=== PATIENT | male | born 1965 | race African-American/Black ===

== ENCOUNTER 2019-12-15 10:47 | Emergency (ER) | payer BC, SELFPAY ==
[2019-12-15 11:05] VITALS: BP 150/94; PULSE 57; RESP 16; TEMP 36.3; O2SAT 98
--- NOTE | 2019-12-15 11:23 | ED.GENADULT ---
HPI - General Adult General Chief complaint: Upper Respiratory Infection Stated complaint: Cold/Flu symptoms History of Present Illness HPI narrative: Patient is a 54-year-old -French male who presents to the urgent care via POV for an evaluation of for sinus problems that began approximately 5 days ago. Additionally, he reports nasal congestion, sinus congestion, sinus pressure, sore throat, fatigue, and swollen lymph nodes. No relief with Claritin. Salt water gargles, hot tea, and hot showers improves symptoms. Nothing worsens symptoms. Patient reports calling PCP who encouraged him to seek strep and flu testing at an urgent care. Denies fever, chills, sweats, malaise, change in appetite, poor p.o. intake, recent weight loss, severe persistent headache, LOC, dizziness, vision changes, ear pain/drainage, nasal drainage, drooling, difficulty swallowing, hoarseness, abdominal pain, nausea, vomiting, diarrhea, cough, shortness of breath, chest pain, heart palpitations/murmurs. Related Data Home Medications Medication Instructions Recorded Confirmed amlodipine-benazepril 1 cap PO DAILY 12/15/19 12/15/19 metoprolol succinate 75 mg PO DAILY 12/15/19 12/15/19 rivaroxaban [Xarelto] 20 mg PO DAILY 12/15/19 12/15/19 Allergies Allergy/AdvReac Type Severity Reaction Status Date / Time No Known Allergies Allergy Verified 12/15/19 11:19 Review of Systems Review of Systems: Narrative: All other systems reviewed and are negative PMFSH Social History Social History Gender identity (if verbalized by the patient): Male Comments I have reviewed and agree with the patient's past medical, surgical, social, and family hx as documented by the RN. There is no relevant family history pertinent to the presenting complaint. Exam Narrative: Exam Narrative: GENERAL: Well-appearing, well-nourished, and in no acute distress. HEAD: Normocephalic, atraumatic. No sinus tenderness or facial swelling appreciated. EYES: PERRLA and EOMI. No evidence of erythema, swelling, or drainage. ENT: Bilateral external ears and ear canals normal. Bilateral TMs are normal.No TM perforation. Nares clear, no rhinorrhea or epistaxis. Bilateral turbinates without erythema/ swelling. Mucous membranes moist and pink. Uvula is midline without erythema and swelling. No evidence of petechial rash, cobblestoning, lesions, ulcers, erythema, swelling, exudates, peritonsillar abscess, tenting, or drooling. Breath odor and voice normal. NECK: Supple. No Lymphadenopathy or nuchal rigidity appreciated. CHEST: Bilateral lung alvarez are clear to auscultation. No respiratory distress. No evidence of cough or pleuritic cp upon examination. HEART: Regular rate and rhythm. No murmur, gallop, or rub heard. EXTREMITIES: Normal range of motion. No edema. SKIN: Warm, dry, no rash. NEURO: No focal deficits. Alert and oriented x3. Course Vital Signs Vital signs: Vital Signs Temperature 97.4 F L 12/15/19 11:05 Pulse Rate 57 L 12/15/19 11:05 Respiratory Rate 16 12/15/19 11:05 Blood Pressure 150/94 H 12/15/19 11:05 Pulse Oximetry 98 12/15/19 11:05 Temperature 97.4 F L 12/15/19 11:05 Pulse Rate 57 L 12/15/19 11:05 Respiratory Rate 16 12/15/19 11:05 Blood Pressure 150/94 H 12/15/19 11:05 Pulse Oximetry 98 12/15/19 11:05 Medical Decision Making Medical Records Medical records reviewed: Yes I reviewed the patient's medical records. Vital Signs Vital Signs: Vital Signs Temperature 97.4 F L 12/15/19 11:05 Pulse Rate 57 L 12/15/19 11:05 Respiratory Rate 16 12/15/19 11:05 Blood Pressure 150/94 H 12/15/19 11:05 Pulse Oximetry 98 12/15/19 11:05 Temperature 97.4 F L 12/15/19 11:05 Pulse Rate 57 L 12/15/19 11:05 Respiratory Rate 16 12/15/19 11:05 Blood Pressure 150/94 H 12/15/19 11:05 Pulse Oximetry 98 12/15/19 11:05 Due to an elevated blood pressure, I had a detailed discussion with the patient and/or guar
== END 2019-12-15 11:45 | disposition home or self-care (01) ==
PROVIDERS: Emergency Provider Nurse Practitioner Family
DX: J01.90 Acute sinusitis, unspecified (principal)
CPT/HCPCS: 87081; 87804; 87880; 99203; G0463

== ENCOUNTER 2021-09-20 16:24 | Emergency (ER) | payer SELFPAY ==
--- NOTE | ~2021-09-20 | XR_ITS ---
EXAMINATION: XR chest 2V DATE: 09/20/2021 17:12 INDICATION: Cough, shortness of breath and fever. TECHNIQUE: frontal and lateral views of the chest were obtained. COMPARISON: Chest radiograph dated 06/15/2015 FINDINGS: The lungs remain clear with no focal airspace opacities, pulmonary edema, pleural effusion or pneumot horax. The cardiomediastinal silhouette is normal. Mild thoracic spondylosis. IMPRESSION: 1. No acute cardiopulmonary disease. Reviewed, dictated and finalized at location H. [employer]
[2021-09-20 16:30] VITALS: BP 145/79; PULSE 85; RESP 18; TEMP 39.7; O2SAT 99
--- NOTE | 2021-09-20 16:58 | ED.URI ---
HPI - URI/Sore Throat General Chief Complaint: Upper Respiratory Infection Stated Complaint: ortega/cough Time Seen by Provider: 09/20/21 16:50 Source: patient and RN notes reviewed Mode of arrival: ambulatory Limitations: no limitations History of Present Illness HPI Narrative: Patient presents today complaining of a 2-day history of cough with shortness of breath, headache, body aches with back pain, congestion and rhinorrhea. He developed a fever today up to 100.2 at home. Temperature upon arrival today at [facility] was 103.4. History of asthma. He has been taking Tylenol and using albuterol inhaler at home with some relief. Currently rates his body aches and headache 05/07. MD elicited complaint: fever and cough Related Data Home Medications Medication Instructions Recorded Confirmed amlodipine-benazepril 1 cap PO DAILY 12/15/19 09/20/21 metoprolol succinate 75 mg PO DAILY 12/15/19 09/20/21 rivaroxaban [Xarelto] 20 mg PO DAILY 12/15/19 09/20/21 Allergies Allergy/AdvReac Type Severity Reaction Status Date / Time No Known Allergies Allergy Verified 09/20/21 16:52 Review of Systems Review of Systems: CONSTITUTIONAL: Denies chills, or sweats.+ Body aches, fever EYES: Denies visual changes, redness, or discharge. ENT: Denies sore throat, or otalgia.+ Congestion, rhinorrhea CARDIOVASCULAR: Denies chest pain, palpitations, or edema. RESPIRATORY: + Cough, breath GASTROINTESTINAL: Denies abdominal pain, nausea, vomiting, or diarrhea. GENITOURINARY: Denies dysuria or hematuria. SKIN: Denies rash, itching, or wounds. MUSCULOSKELETAL: Denies joint pain, or myalgia.+ Back pain NEUROLOGIC: Denies numbness, tingling, or weakness.+ Headache PSYCH: Denies depression or anxiety. PMFSH Social History Social History Gender identity (if verbalized by the patient): Male Comments At time of signature, I have reviewed and agree with nursing past medical, surgical, social and family history unless otherwise noted. Please see nursing chart for further information. There is no relevant family history pertinent to the presenting complaint Exam Narrative: GENERAL: Mildly ill-appearing, well-nourished, and in no acute distress. HEAD: Normocephalic, atraumatic. EYES: EOMI. No redness or drainage. Conjunctivae normal. ENT: Mucous membranes pink and moist. Nares clear. No rhinorrhea. TMs normal bilaterally. Throat normal. Uvula midline. NECK: Normal AROM. Supple. No lymphadenopathy. CHEST: No respiratory distress. Crackles in the left lower lobe, otherwise clear. HEART: Regular rate and rhythm. No murmur appreciated. Normal peripheral pulses. EXTREMITIES: Normal range of motion. No edema. SKIN: Warm, dry, no rash. Capillary refill normal. Normal skin turgor. NEURO: No focal deficits. Alert and oriented x3. Gait steady. PSYCH: Normal affect. No signs of depression or anxiety. Course Vital Signs Vital signs: Vital Signs Temperature 103.4 F H 09/20/21 16:30 Pulse Rate 85 09/20/21 16:30 Respiratory Rate 18 09/20/21 16:30 Blood Pressure 145/79 H 09/20/21 16:30 Pulse Oximetry 99 09/20/21 16:30 Temperature 103.4 F H 09/20/21 16:30 Pulse Rate 85 09/20/21 16:30 Respiratory Rate 18 09/20/21 16:30 Blood Pressure 145/79 H 09/20/21 16:30 Pulse Oximetry 99 09/20/21 16:30 Reviewed. Pt has been instructed to follow up with his PCP regarding his elevated blood pressure today. MDM - URI/Sore Throat Differential Diagnosis Differential diagnosis: Likely upper respiratory infection, viral infection, influenza and other (Asthma exacerbation, COVID-19) Lab Data Attestation: I reviewed the patient's lab results. Lab results narrative: Rapid COVID-19 test negative Labs: Influenza A Screen Negative Reference Range: Negative Influenza B Screen Negative
[2021-09-20] MEDS: ACETAMINOPHEN 500 MG TABLET 1000 MG PO (17:00)
== END 2021-09-20 17:35 | disposition home or self-care (01) ==
PROVIDERS: Emergency Provider Nurse Practitioner
DX: B34.9 Viral infection, unspecified (principal); Z20.822 Contact with and (suspected) exposure to COVID-19; I10 Essential (primary) hypertension; I48.91 Unspecified atrial fibrillation
CPT/HCPCS: 71046; 87426; 87804; 99213; A9270; C9803; G0463

== ENCOUNTER 2021-10-22 06:08 | Emergency (ER) | payer OTHER, SELFPAY ==
--- NOTE | ~2021-10-22 | CT_ITS ---
EXAMINATION: CT soft tissue neck w con DATE: 10/22/2021 08:42 INDICATION: Sore throat. Dysphagia. TECHNIQUE: Computed tomography (CT) of the neck was performed with 75 mL Omnipaque-350 intravenous co ntrast. Automated exposure control and iterative reconstruction technique were employed. The dose-vandana gth product was 666.24 mGy-cm. COMPARISON: None FINDINGS: There are no pathologically enlarged lymph nodes. The pharyngeal mucosal space is unremarka ble. There is 0% stenosis of the proximal internal carotid arteries relative to normal distal artery lumen diameters. There are old fracture deformities of the nasal bones, nasal processes of maxilla, a nd nasal septum. The mastoid air cells are normal. There is severe cervical spondylosis. IMPRESSION: 1. No etiology for the patient's symptoms. Reviewed, dictated and finalized at location A. [employer]
[2021-10-22 06:13] VITALS: BP 158/91; PULSE 61; RESP 18; TEMP 36.9; O2SAT 100
[2021-10-22 07:16] VITALS: BP 150/100; PULSE 59; O2SAT 99
--- NOTE | 2021-10-22 07:37 | ED.GENADULT ---
HPI - General Adult General Chief complaint: Unspecified Stated complaint: sore throat trouble swallowing Time Seen by Provider: 10/22/21 07:02 Source: patient and RN notes reviewed History of Present Illness HPI narrative: Patient is a 56 y/o male complaining sorethroat starting yesterday. He describe his discomfort as a soreness. He states that coughing makes it worse. He feels his throat is swollen and there is a ball in his throat. He has some cough and congestion which he attributed to recent COVID infection. He has no fever. Related Data Home Medications Medication Instructions Recorded Confirmed amlodipine-benazepril 1 cap PO DAILY 12/15/19 09/20/21 metoprolol succinate 75 mg PO DAILY 12/15/19 09/20/21 rivaroxaban [Xarelto] 20 mg PO DAILY 12/15/19 09/20/21 Allergies Allergy/AdvReac Type Severity Reaction Status Date / Time No Known Allergies Allergy Verified 10/22/21 06:19 Review of Systems Constitutional: Constitutional: Denies chills, Denies fever(s), Denies headache(s) and Denies weakness Eyes: Eyes: Denies blurry vision ENT: Denies headache(s), Denies neck pain, Reports sore throat and Reports throat swelling Cardiovascular: Cardiovascular: Denies chest pain and Denies dyspnea Respiratory: Respiratory: Denies cough and Denies dyspnea Gastrointestinal: Gastrointestinal: Denies abdominal pain, Denies diarrhea, Denies nausea and Denies vomiting Genitourinary: Genitourinary: Denies hematuria and Denies dysuria Musculoskeletal: Musculoskeletal: Denies back pain and Denies neck pain Neurologic: Denies headache(s) and Denies weakness [facility] Social History Social History Gender identity (if verbalized by the patient): Male Exam Const: General: no acute distress and well developed Orientation/consciousness: oriented to person, oriented to place, oriented to time and patient oriented x3 HENMT: Head: normocephalic Ears: external ears normal General nose exam: Normal external nose present Eyes: General: appearance normal, both eyes and all related structures Conjunctivae: conjunctivae normal Neck: Neck: normal visual inspection and full ROM Chest: Chest palpation & inspection: normal inspection of the chest and no tenderness Resp: Effort & Inspection: normal respiratory effort Auscultation: clear to auscultation bilaterally Cardio: Rate: regular rate Rhythm: regular rhythm GI: GI Palp: No abdominal tenderness and Yes Soft to palpation Skin: General skin exam: normal color and turgor normal Neuro: General: oriented to person, oriented to place, oriented to time and patient oriented x3 Cognition (Neuro): normal cognition Extrem: General: normal to inspection, full ROM and no pedal edema Psych: Appearance: grossly normal Mental Status: mental status grossly normal Affect: normal affect Course Vital Signs Vital signs: Vital Signs Temperature 36.9 C 10/22/21 06:13 Pulse Rate 61 10/22/21 06:13 Respiratory Rate 18 10/22/21 06:13 Blood Pressure 158/91 H 10/22/21 06:13 Pulse Oximetry 100 10/22/21 06:13 Temperature 36.9 C 10/22/21 06:13 Pulse Rate 55 L 10/22/21 10:03 Respiratory Rate 18 10/22/21 10:03 Blood Pressure 173/96 H 10/22/21 10:03 Pulse Oximetry 99 10/22/21 10:03 Medical Decision Making Vital Signs Vital Signs: Vital Signs Temperature 36.9 C 10/22/21 06:13 Pulse Rate 61 10/22/21 06:13 Respiratory Rate 18 10/22/21 06:13 Blood Pressure 158/91 H 10/22/21 06:13 Pulse Oximetry 100 10/22/21 06:13 Temperature 36.9 C 10/22/21 06:13 Pulse Rate 55 L 10/22/21 10:03 Respiratory Rate 18 10/22/21 10:03 Blood Pressure 173/96 H 10/22/21 10:03 Pulse Oximetry 99 10/22/21 10:03 Lab Data Result diagrams: 10/22/21 07:48 10/22/21 07:48 Labs: Lab Results 10/22/21 10/22/21 10/22/21 Range/Units 07:48 07:48 07:48 WBC 7.8 (4.5-
--- NOTE | 2021-10-22 07:54 | PC.NURSE ---
patient refused Toradol stating I'm not in that much pain
[2021-10-22 07:55] LABS: Basophils Absolute Auto 0.1 K/mm3 (0.0-0.1); Basophils Percent Auto 0.9 % (0.2-1.2); Eosinophils Absolute Auto 0.3 K/mm3 (0-0.3); Eosinophils Percent Auto 3.2 % (0-4.4); Hematocrit 39.9 % (42.0-52.0); Immature Granulocyte Absolute 0.02 K/mm3 (0.00-0.031); Immature Granulocyte Percent A 0.3 % (0-0.5); Lymphocytes Absolute Auto 2.04 K/mm3 (0.9-3.2); Lymphocytes Percent Auto 26.2 % (18.3-44.2); Mean Corpuscular HGB Conc 32.6 g/dl (32-36); Mean Corpuscular Hemoglobin 28.8 pg (26-34); Mean Corpuscular Volume 88.3 fl (80-100); Mean Platelet Volume 10.8 fl (7.4-10.4); Monocytes Absolute Auto 0.6 K/mm3 (0.1-0.6); Monocytes Percent Auto 7.6 % (2.6-8.5); Neutrophils Absolute Auto 4.8 K/mm3 (1.3-6.7); Neutrophils Percent Auto 61.8 % (45.5-73.1); Platelet Count Result 226 k/mm3 (150-375); Red Blood Count 4.52 M/mm3 (4.6-6.20); Red Cell Distribution Width 14.3 % (11.5-14.5); White Blood Count 7.8 K/mm3 (4.5-10.0)
[2021-10-22 08:04] LABS: Anion Gap 9 mmol/L (8-16); Blood Urea Nitrogen 12 mg/dL (9-20); Calcium 9.1 mg/dL (8.4-10.2); Carbon Dioxide 25 mmol/L (22-30); Chloride 105 mmol/L (98-107); Estimated CRCL calculation 86 ml/min; Estimated Glomerular Filt Rate > 60; Glucose 109 mg/dL (65-110); Potassium 3.9 mmol/L (3.4-5.0); Sodium 139 mmol/L (137-145)
[2021-10-22 08:30] LABS: Monoscreen Negative (Negative); Negative Monotest Control Negative (Negative); Positive Monotest Control Positive (Positive)
[2021-10-22 10:03] VITALS: BP 173/96; PULSE 55; RESP 18; O2SAT 99
== END 2021-10-22 10:04 | disposition home or self-care (01) ==
PROVIDERS: Emergency Provider Emergency Medicine
DX: U07.1 COVID-19 (principal); J02.9 Acute pharyngitis, unspecified; Z79.01 Long term (current) use of anticoagulants
CPT/HCPCS: 36415; 70491; 80048; 85025; 86308; 87081; 87880; 99284; Q9967

== ENCOUNTER 2021-11-05 20:24 | Emergency (ER) | payer OTHER, SELFPAY ==
--- NOTE | ~2021-11-05 | XR_ITS ---
EXAMINATION: XR ankle RT min 3V DATE: 11/05/2021 23:50 INDICATION: Right ankle pain and swelling. TECHNIQUE: 4 views of right ankle were obtained. COMPARISON: None. FINDINGS: Bone alignment is normal. No fracture. There is heterotopic ossification distal to medial m alleolus, likely from old injury. There is mild ankle joint osteoarthritis. There is mild osteoarthri tis of talonavicular joint. There are enthesophytes at the posterior and plantar aspects of calcaneal tuberosity. There is ankle soft tissue swelling. IMPRESSION: 1. Mild polyarticular osteoarthritis. Reviewed, dictated and finalized at location A. [employer]
[2021-11-05 21:04] VITALS: BP 147/81; PULSE 61; RESP 18; TEMP 36.9; O2SAT 100
[2021-11-05 23:46] VITALS: BP 130/91; PULSE 60; RESP 18; O2SAT 98
--- NOTE | 2021-11-06 00:07 | ED.GENADULT ---
HPI - General Adult General Chief complaint: Extremity Problem,Nontraumatic Stated complaint: right ankle pain Time Seen by Provider: 11/05/21 23:38 Source: patient History of Present Illness HPI narrative: Patient is a 56 y/o male complaining of right ankle pain starting 2 days ago. He describes his pain as sharp and rates it as 8/10. Weight bearing worsens the pain. He states that pain radiates up his leg. He denies injury. Related Data Home Medications Medication Instructions Recorded Confirmed amlodipine-benazepril 1 cap PO DAILY 12/15/19 09/20/21 metoprolol succinate 75 mg PO DAILY 12/15/19 09/20/21 rivaroxaban [Xarelto] 20 mg PO DAILY 12/15/19 09/20/21 Allergies Allergy/AdvReac Type Severity Reaction Status Date / Time No Known Allergies Allergy Verified 10/22/21 06:19 Review of Systems Constitutional: Constitutional: Denies chills, Denies fever(s), Denies headache(s) and Denies weakness Eyes: Eyes: Denies blurry vision ENT: Denies headache(s) and Denies neck pain Cardiovascular: Cardiovascular: Denies chest pain and Denies dyspnea Respiratory: Respiratory: Denies cough and Denies dyspnea Gastrointestinal: Gastrointestinal: Denies abdominal pain, Denies diarrhea, Denies nausea and Denies vomiting Genitourinary: Genitourinary: Denies hematuria and Denies dysuria Musculoskeletal: Musculoskeletal: Reports as per HPI, Denies back pain, Denies neck pain and Reports other (right ankle pain) Neurologic: Denies headache(s) and Denies weakness [facility] Social History Social History Gender identity (if verbalized by the patient): Male Exam Const: General: no acute distress and well developed Orientation/consciousness: oriented to person, oriented to place, oriented to time and patient oriented x3 HENMT: Head: normocephalic Ears: external ears normal General nose exam: Normal external nose present Eyes: General: appearance normal, both eyes and all related structures Conjunctivae: conjunctivae normal Neck: Neck: normal visual inspection and full ROM Chest: Chest palpation & inspection: normal inspection of the chest and no tenderness Resp: Effort & Inspection: normal respiratory effort Auscultation: clear to auscultation bilaterally Cardio: Rate: regular rate Rhythm: regular rhythm GI: GI Palp: No abdominal tenderness and Yes Soft to palpation Skin: General skin exam: normal color and turgor normal Neuro: General: oriented to person, oriented to place, oriented to time and patient oriented x3 Cognition (Neuro): normal cognition Extrem: General: normal to inspection, full ROM and no pedal edema Right lower extremity: ankle Details: tenderness and swelling Psych: Appearance: grossly normal Mental Status: mental status grossly normal Affect: normal affect Course Vital Signs Vital signs: Vital Signs Temperature 36.9 C 11/05/21 21:04 Pulse Rate 61 11/05/21 21:04 Respiratory Rate 18 11/05/21 21:04 Blood Pressure 147/81 H 11/05/21 21:04 Pulse Oximetry 100 11/05/21 21:04 Temperature 36.9 C 11/05/21 21:04 Pulse Rate 88 11/06/21 02:17 Respiratory Rate 18 11/06/21 02:17 Blood Pressure 139/95 H 11/06/21 02:17 Pulse Oximetry 96 11/06/21 02:17 Medical Decision Making Vital Signs Vital Signs: Vital Signs Temperature 36.9 C 11/05/21 21:04 Pulse Rate 61 11/05/21 21:04 Respiratory Rate 18 11/05/21 21:04 Blood Pressure 147/81 H 11/05/21 21:04 Pulse Oximetry 100 11/05/21 21:04 Temperature 36.9 C 11/05/21 21:04 Pulse Rate 88 11/06/21 02:17 Respiratory Rate 18 11/06/21 02:17 Blood Pressure 139/95 H 11/06/21 02:17 Pulse Oximetry 96 11/06/21 02:17 Lab Data Result diagrams: 11/06/21 00:01 11/06/21 00:01 Labs: Lab Results 11/06/21 11/06/21 Range/Units 00:01 00:01 WBC 10.7 H (4.5-10.0) K/mm3 RBC 4.44 L (4.6-6.20) M/mm3 Hgb 12.
[2021-11-06 00:08] LABS: Basophils Absolute Auto 0.1 K/mm3 (0.0-0.1); Basophils Percent Auto 0.7 % (0.2-1.2); Eosinophils Absolute Auto 0.2 K/mm3 (0-0.3); Eosinophils Percent Auto 1.8 % (0-4.4); Hematocrit 39.6 % (42.0-52.0); Hemoglobin 12.6 g/dL (14.0-18.0); Immature Granulocyte Absolute 0.05 K/mm3 (0.00-0.031); Immature Granulocyte Percent A 0.5 % (0-0.5); Lymphocytes Absolute Auto 3.15 K/mm3 (0.9-3.2); Lymphocytes Percent Auto 29.4 % (18.3-44.2); Mean Corpuscular HGB Conc 31.8 g/dl (32-36); Mean Corpuscular Hemoglobin 28.4 pg (26-34); Mean Corpuscular Volume 89.2 fl (80-100); Monocytes Absolute Auto 0.7 K/mm3 (0.1-0.6); Monocytes Percent Auto 6.8 % (2.6-8.5); Neutrophils Absolute Auto 6.5 K/mm3 (1.3-6.7); Neutrophils Percent Auto 60.8 % (45.5-73.1); Platelet Count Result 234 k/mm3 (150-375); Red Blood Count 4.44 M/mm3 (4.6-6.20); Red Cell Distribution Width 13.9 % (11.5-14.5); White Blood Count 10.7 K/mm3 (4.5-10.0)
[2021-11-06] MEDS: ACETAMINOPHEN 500 MG TABLET 1000 MG PO (00:08)
[2021-11-06 00:19] LABS: Anion Gap 4 mmol/L (8-16); Blood Urea Nitrogen 15 mg/dL (9-20); Calcium 8.9 mg/dL (8.4-10.2); Carbon Dioxide 25 mmol/L (22-30); Chloride 108 mmol/L (98-107); Estimated CRCL calculation 80 ml/min; Estimated Glomerular Filt Rate > 60; Glucose 94 mg/dL (65-110); Potassium 3.7 mmol/L (3.4-5.0); Sodium 137 mmol/L (137-145); Uric Acid 7.1 mg/dL (3.5-8.5)
[2021-11-06 02:17] VITALS: BP 139/95; PULSE 88; RESP 18; O2SAT 96
== END 2021-11-06 02:18 | disposition home or self-care (01) ==
PROVIDERS: Emergency Provider Emergency Medicine; PCP Student in an Organized Health Care Education/Training Program
DX: M25.571 Pain in right ankle and joints of right foot (principal)
CPT/HCPCS: 36415; 73610; 80048; 84550; 85025; 99283; A9270